=== PATIENT | male | born 1950 | race Caucasian/White ===

== ENCOUNTER 2022-10-22 08:44 | Day surgery (SDC) | payer MEDICARE, OTHER ==
[~2022-10-22] VITALS: Ht 182.9 cm; Wt 65.8 kg
[~2022-10-22 08:44] MED LIST: ASPI-1450 PO; FERR325T27 PO; LISI-657 PO; ROSU20TA73 PO; SODIUM CHLORIDE 0.9% 1,000 ML ONE
[2022-10-22] MEDS ORDERED: LIDOCAINE/PF 2% 5 ML SYRINGE IVP ONE (08:45)
[2022-10-22] MEDS ORDERED: GLYCOPYRROLATE 0.2 MG/ML VIAL IM ONE (08:45)
[2022-10-22] MEDS ORDERED: OXYGEN THERAPY IH SCH (10:45)
[2022-10-22] MEDS ORDERED: SODIUM CHLORIDE 0.9% 1,000 ML IV ONE (11:30)
== END 2022-10-22 12:30 | disposition home or self-care (01) ==
LOC: SURGERY 08:44
PROVIDERS: ATTEND Specialist
DX: K31.89 Other diseases of stomach and duodenum (principal); D50.9 Iron deficiency anemia, unspecified; I10 Essential (primary) hypertension; I25.2 Old myocardial infarction; Z79.899 Other long term (current) drug therapy; Z95.5 Presence of coronary angioplasty implant and graft; Z98.890 Other specified postprocedural states; I25.10 Atherosclerotic heart disease of native coronary artery without angina pectoris; E78.00 Pure hypercholesterolemia, unspecified; K59.00 Constipation, unspecified
CPT/HCPCS: 43255; 93005; J3490 ×2; J7030